=== PATIENT | male | born 1955 | race Caucasian/White ===

== ENCOUNTER → 2016-11-22 | Outpatient (CLI) | payer BC, OTHER ==
--- NOTE | 2016-11-22 14:22 | US ---
Ultrasound and Venous Duplex Doppler Study of the Right Lower Extremity Clinical History: 61-year-old male with a prior history of a blood clot in the right lower extremity. ICD 10 Diagnostic Code: I82.40. Technique: A high frequency transducer was used for imaging and Doppler study of the veins of the legacy healtht lower extremity. Pulsed Doppler and color Doppler were utilized, along with various maneuvers t o assess flow in the veins. Cursory evaluation of the contralateral common femoral vein was obtained for comparison purposes. Comparison Study: None currently available. Findings: The deep veins of the right lower extremity are normally compressible between the groin an d the upper calf, and have normal Doppler waveforms. There is no sonographic evidence of deep venous thrombosis. The greater saphenous vein is compressible. The popliteal fossa is unremarkable. Impression: There is no sonographic evidence of deep or superficial vein thrombosis in the right lowe r extremity .
== END ==
LOC: CIMAGING 11:04
PROVIDERS: ATTEND Internal Medicine Gastroenterology
DX: Z09 Encounter for follow-up examination after completed treatment for conditions other than malignant neoplasm (principal); Z86.718 Personal history of other venous thrombosis and embolism
CPT/HCPCS: 93971-PO